=== PATIENT | male | born 1960 | race Caucasian/White ===

== ENCOUNTER 2018-05-21 08:51 | Day surgery (SDC) | payer BC ==
--- NOTE | 2018-05-21 08:07 | HP ---
DATE OF SURGERY: 05/21/2018 HISTORY OF PRESENT ILLNESS: The patient is a 57 year-old with last colonoscopy more than ten years ago. Change in some bowel movements, some loose stools due to Metformin use and some pencil-sized stools. Otherwise no pain, no bloody stools. Family history of uncle from colon cancer. PAST MEDICAL HISTORY: Anxiety and diabetes. PAST SURGICAL HISTORY: He had prior colonoscopy. He denied any abdominal surgery. MEDICATIONS: Anxiety medication as long list with Buspar, Metformin. ALLERGIES: LATEX. FAMILY HISTORY: Diabetes, colon cancer, hypertension, chronic obstructive pulmonary disease. Uncle from colon cancer. SOCIAL HISTORY: Chews one can a day. Denied smoking. He drinks a beer once or twice a year. REVIEW OF SYSTEMS: Twelve systems reviewed. No chest pain or palpitations other systems negative or noncontributory as above and per preadmission questionnaire. PHYSICAL EXAMINATION: GENERAL: No acute distress. HEENT: Sclerae nonicteric. NECK: No JVD. CHEST: Equal excursion, nonlabored breathing. CVS: Regular rate and rhythm. ABDOMEN: Soft. No peritoneal signs. EXTREMITIES: No significant edema. NEURO: Alert, oriented, moving extremities symmetrically. No gross motor deficits noted. RECTAL: Deferred timed to endoscopy exam. IMPRESSION: A 57 year-old gentleman with family history of colon cancer. He is in need of follow up screening colonoscopy. I feel he is a candidate. He was shown the risk sheet. Explained the procedure in detail. Risks and benefits explained in detail including but not limited to bleeding or infection, small risk of bowel injury or perforation possibly requiring open procedure, risk of missed or nondiagnosis or incomplete exam possibly requiring barium enema, other studies or procedures, general risk of anesthesia or sedation, risk of bowel prep, postoperative risk of nausea or cramping but not limited to. He understands and agrees to the planned procedure and will proceed with outpatient follow up screening colonoscopy.
[2018-05-21] MEDS ORDERED: DIPRIVAN 200 MG/20 ML IV ONE (08:52)
[2018-05-21] MEDS ORDERED: Lactated Ringers 1,000 ML IV SCH (09:30)
[2018-05-21] MEDS ORDERED: Reglan 10 MG/2 ML IV ONE (09:35)
[2018-05-21] MEDS ORDERED: Pepcid 20 MG VIAL IV ONE ×2 (09:35→09:39)
[2018-05-21 09:39] VITALS: O2SAT 96
[2018-05-21] MEDS ORDERED: Reglan 10 MG/2 ML ONE (09:39)
[2018-05-21] MEDS ORDERED: Lactated Ringers 1,000 ML IV ONE (12:02)
[2018-05-21 12:56] VITALS: BP 137/92; PULSE 58
[2018-05-21 13:56] LABS: BLOOD UREA NITROGEN 9 mg/dL (9-20); Creatinine 1 0.71 mg/dL (0.66-1.25)
--- NOTE | 2018-05-22 07:55 | OP ---
SURGERY DATE/TIME: 05/21/2018 1140 PREOPERATIVE DIAGNOSIS: Family history of colon cancer. POSTOPERATIVE DIAGNOSES: 1) Large sigmoid colon mass, ulcerated distal sigmoid colon above the rectosigmoid area. 2) Multiple other polyps throughout the colon. 3) Diverticulosis. 4) Small internal and external hemorrhoids. 5) Fair bowel prep. PROCEDURES: 1) Colonoscopy to cecum with hot snare polypectomy approximately 1 cm descending colon polyp. 2) Hot snare polypectomy ascending colon polyp about 4 mm. 3) Hot snare polypectomy proximal transverse colon polyp approximately 4 mm. 4) Hot snare polypectomy distal transverse colon polyp approximately 4 mm. 5) Multiple cold biopsies of ulcerated large sigmoid colon mass. SURGEON: Dr. Kavon Garcia. ANESTHESIA: MAC. ESTIMATED BLOOD LOSS: Minimal. INDICATIONS: As noted above. Risks and benefits explained in detail but not limited to and consent was obtained. DESCRIPTION OF PROCEDURE AND FINDINGS: The patient is taken to the operating room. MAC anesthesia introduced. After official time out and no disagreement with planned procedure, digital rectal exam did not reveal any rectal masses. He did have some small internal and external hemorrhoids. Video colonoscope inserted and passed up through the retrosigmoid colon and about 19 to 20 cm from the anal verge was a large ulcerated sigmoid colon mass extending up 4 to 5 cm. Scope was able to be passed back through here up to the descending colon were a 1 cm polyp on a stalk was removed with hot snare polypectomy and brief bursts of cautery. The scope was then passed back down the transverse colon. There were two areas one in the distal and one in the more proximal transverse colon small polyps about 4 mm in size removed with hot snare polypectomy with brief bursts of cautery. Another small polyp 3 to 4 mm in the ascending colon removed with hot snare polypectomy with brief bursts of cautery. The scope was able to be passed to the cecum. Appendiceal and valve well visualized with palpation right lower quadrant. The scope was slowly and carefully withdrawn. Prep overall was fair. There was a little bit of liquidy stool it was suctioned and irrigated as well as possible. There were no signs of any other large polyps, masses or obstructing lesions throughout the colon. He did have some diverticulosis. He did have some small internal and external hemorrhoids. The scope was pulled back. The hot snare polypectomy sites had good hemostasis. The scope was pulled back to the large sigmoid mass. Multiple cold biopsies were taken there as it had appearance of malignancy with path pending. The scope was then withdrawn. He had small internal and external hemorrhoids otherwise there were no signs of any large polyps, masses or obstructing lesions. At this point will check a CEA level, order CT scan of pelvis to avoid disease elsewhere. I will see him back in the office to go over the findings to discuss initial surgical resection of this area. Findings discussed with the family out in the waiting area.
== END 2018-05-21 13:15 | disposition home or self-care (01) ==
LOC: SDC 08:51
PROVIDERS: ATTEND Surgery
DX: C18.7 Malignant neoplasm of sigmoid colon (principal); D12.2 Benign neoplasm of ascending colon; D12.4 Benign neoplasm of descending colon; D12.3 Benign neoplasm of transverse colon; K57.30 Diverticulosis of large intestine without perforation or abscess without bleeding; K64.4 Residual hemorrhoidal skin tags; K64.8 Other hemorrhoids; Z80.0 Family history of malignant neoplasm of digestive organs
CPT/HCPCS: 36415; 82378; 82565; 82962; 84520; J2704